=== PATIENT | female | born 1995 | race Caucasian/White ===

== ENCOUNTER 2018-04-13 04:15 | Emergency (ER) | payer BC, SELFPAY ==
[2018-04-13 04:16] VITALS: BP 149/99; PULSE 98; RESP 18; TEMP 36.9; O2SAT 99; BMI 23.0
[2018-04-13 04:39] LABS: Mucous, Urine 0 SEEN /hpf (<or=2+); Red Blood Cells-Urine 0 SEEN /hpf (0-5)
--- NOTE | 2018-04-13 04:46 | ED.VISSUMM ---
- ER Visit Summary Date of Service: 04/13/18 Chief Complaint: Left flank pain History of Present Illness: The patient is a 23 F who states that yesterday morning she woke and had left flank pain. She states that it went away and she was fine for the rest of the day. This morning the pain returned. Sharp and burning pain in the left low back. Is worse with movement and walking. She denies any urinary symptoms. No fevers. Physical Examination: Afebrile vital signs are stable Gen: Well-nourished well-developed Head: Normocephalic atraumatic Eyes: Perrl EOMI ENT: TMs clear no rhinorrhea moist mucous membranes Neck: Supple no lymphadenopathy no JVD nontender CVS: Regular rate rhythm no murmurs normal S1-S2 Respiratory: No distress clear to auscultation bilaterally chest nontender Abdomen: Soft nontender nondistended normal bowel sounds no masses Back: Well-healed thoracic midline incision. Patient has tenderness to palpation over the lower lumbar paraspinal musculature Extremity: Nontender no edema Skin: Normal color no rash Neuro: alert orientated ?3 CN II-XII intact normal strength sensation reflexes gait cerebellar Psych: Normal affect normal mood Test Results: Urinalysis with no infection. CT flank no evidence of ureterolithiasis or hydronephroureter. Emergency Department Course and Treatment: Patient will be treated with muscle relaxants and anti-inflammatories. I believe this to be musculoskeletal in nature. Return if worsening or concerns Impression: 1. Lumbar paraspinal muscle spasm This note was generated with [employer] dictation software. It may contain incorrect words, spelling, and punctuation that were not noted in review of the chart prior to signing ED Disposition - Plan for ED Patient: Disposition: Home or Assisted Living Chief Complaint: Flank Pain Instructions: ED Spasm Back No Trauma Prescriptions: Ibuprofen [Motrin] 800 mg PO TID PRN PRN #20 tab PRN Reason: Pain Cyclobenzaprine [Flexeril] 10 mg PO TID PRN #20 tab PRN Reason: Muscle Spasm Referrals: Stephenie Sanchez MD [STAFF PHYSICIAN] - 1 Week if not improving
[2018-04-13 04:55] LABS: Color, Urine Yellow (Yellow); Glucose, Dipstick Normal (Normal); Ketone-Dipstick Negative (Negative); Leukocyte Esterase-Dipstick Negative /ul (Negative); Nitrite-Dipstick Negative (Negative); Occult Blood-Urine 10 /ul (Negative); Protein-Dipstick Negative (Negative); Urine Bilirubin Dipstick Negative (Negative); Urine Clarity Cloudy (Clear); Urine Urobilinogen Normal (Normal)
[2018-04-13 04:58] LABS: Internal QC Validated? YES +Cl - CLEAR BKGD; Pregnancy, Urine Negative Negative
[2018-04-13 05:00] LABS: Amorphous Sediment 2+; Bacteria RARE /hpf (None Seen); Squamous Epithelial Cells - UA 5-10 SEEN /hpf (5-10)
[2018-04-13 05:01] LABS: White Blood Cells 0-5 SEEN /hpf (0-5)
--- NOTE | 2018-04-13 05:07 | CT_ITS ---
STUDY: CT ABDOMEN AND PELVIS WITHOUT CONTRAST REASON FOR EXAM: Female, 23 years old. Left flank pain. RADIATION DOSAGE (If Supplied By Facility): CTDIvol = ( 6.10 ) mGy, DLP = ( 271.28 ) mGycm TECHNIQUE: Transaxial images were obtained from the dome of the diaphragm to the symphysis pubis without oral contrast, and without intravenous contrast. Sagittal and coronal images were reconstructed. Individualized dose optimization techniques were used for this CT. COMPARISON: None. FINDINGS: The visualized lung bases are unremarkable. The visualized portions of the heart are within normal limits. Normal liver. The gallbladder is contracted. Normal spleen. Normal pancreas. Normal bilateral adrenal glands. Normal right kidney. Normal left kidney. No left hydronephrosis. It is difficult to follow the left ureter through the pelvis without intravenous contrast. Limited evaluation of solid organs and bowel without intravenous and oral contrast. Normal visualized stomach. Normal small intestine. Normal colon. The appendix is visualized axial image 118 and appears normal. Normal abdominal aorta. Normal inferior vena cava. Normal retroperitoneum. No intra-abdominal free air. Normal urinary bladder. Uterus grossly normal. No adnexal masses seen. Normal abdominal wall. Postoperative changes of posterior thoracic fusion. CT/Abdomen/Pelvis without Cont IMPRESSION: No acute findings in the abdomen or pelvis. No hydronephrosis or urinary tract stones. Electronically Signed: Ok Cohen MD at 5:41 EDT , Service support ,
[2018-04-13 05:59] VITALS: RESP 14
== END 2018-04-13 06:04 | disposition home or self-care (01) ==
PROVIDERS: Emergency Provider Emergency Medicine
DX: M62.830 Muscle spasm of back (principal)
CPT/HCPCS: 74176; 81001; 81025; 99282